=== PATIENT | female | born 1985 | race Caucasian/White ===

== ENCOUNTER 2017-04-25 07:15 | Inpatient (IN) | payer OTHER ==
[2017-04-25] MEDS: ELECTROLYTE-148 SOLN 1,000 ML IV SCH (09:30)
[2017-04-25 10:23] VITALS: BMI 35.5
[2017-04-25 10:29] LABS: BASOPHIL 1.1 % (0-2.0); EOSINOPHIL 1.9 % (0-4.5); MCH 25.8 pg (25.7-33.7); MCHC 32.3 g/dl (32.0-36.0); MEAN CELL VOLUME 79.9 fl (80-96); MEAN PLT VOLUME 8.4 fl (7.5-11.1); NEUTROPHILS 66.1 % (42.8-82.8); PLATELET COUNT 139 K/MM3 (134-434); RDW 16.8 % (11.6-15.6); WHITE BLOOD COUNT 6.7 K/mm3 (4.0-10.0)
[2017-04-25] MEDS ORDERED: AMPICILLIN - 2 GM in SODIUM CHLORIDE 100 ML IVPB ONE (10:31)
--- NOTE | 2017-04-25 10:35 | HP ---
Past Medical History - Admission Chief Complaint: labor pains History of Present Illness: 32 y/o at 39 weeks with complaints of labor pains and srom. GBS pos, hbsag neg, rpr neg, hiv neg History Source: Patient Limitations to Obtaining History: No Limitations - Past Medical History INCOME TAX ADVISOR: No: Alzheimer's, CVA, Dementia, Migraine, Multiple Sclerosis, Peripheral Neuropathy, Parkinson's, Seizure, Syncope, TIA, Vertigo, Other Cardiovascular: No: AFIB, Aneurysm, Aortic Insufficiency, Aortic Stenosis, CAD, CHF, Deep Vein Thrombosis, HTN, Hyperlipdemia, CT, Mitral Insufficiency, Mitral Stenosis, Murmur, Pulmonary Hypertension, Other Pulmonary: No: Asthma, Bronchitis, Cancer, COPD, O2 Dependent, Pneumonia, Previously Intubated, Pulmonary Embolus, Pulmonary Fibrosis, Sleep Apnea, Other Gastrointestinal: No: Ascites, Cancer, Constipation, Crohn's Disease, Diverticulitis, Diverticulosis, Esophageal Varices, Gastritis, GERD, GI Bleed, Hemorrhoids, Hiatal Hernia, Inflamatory Bowel Disease, Irritable Bowel Disease, Pancreatitis, Peptic Ulcer Disease, Ulcerative Colitis, Other Hepatobiliary: No: Cirrhosis, Cholelithiasis, Cholecystitis, Choledocholithiasis , Hepatitis A, Hepatitis B, Hepatitis C, Other Renal/: No: Renal Failure, Renal Inusuff, BPH, Cancer, Hematuria, Hemodialysis , Neurogenic Bladder, Renal Calculi, UTI, Other Reproductive: No: Ectopic , Endometriosis, Fibroids, PID, Polycystic Ovary Syndrome, Postmenopausal, Other ...: 3 ...Para: 2 ...Term: 2 ...: 0 ...Spon : 0 ...Induced : 0 ...Multiple Gestation: 0 ...LMP: 07/24/16 ...EDC by Dates: 04/30/17 ...EDC by Sono: 04/30/17 Heme/Onc: No: Anemia, B12 Deficiency, Bleeding Disorder, Cancer, Current Chemotherapy, Current Radiation Therapy, Hemochromatosis, Hypercoaguable State, Myeloproliferative Synd, Sickle Cell Disease, Sickle Cell Trait, Thrombocytopenia, Other Infectious Disease: No: AIDS, C-Diff, Herpes Zoster, HIV, MRSA, STD's, Tuberculosis, VREF, Other Psych: No: Addictions, Anxiety, Bipolar, Depression, Panic, Psychosis, Schizophrenia, Other Musculoskeletal: No: Bursitis, Chronic low back pain, Hemiparesis, Hemiplegia, Osteoarthritis, Paraplegia, Other Rheumatology: No: Fibromyalgia, Gout, Lupus, Rheumatoid Arthritis, Sarcoidosis, Vasculitis, Other ENT: No: Allergic Rhinitis, Sinusitis, Other Endocrine: No: [place] Disease, [place]'s Disease, Diabetes Insipidus, Diabetes Mellitus, Hyperparathyroidism, Hyperthyroidism, Hypothyroidism, Osteopenia, SIADH, Other Dermatology: No: Basal Cell, Cellulitis, Eczema, Melanoma, Psoriasis, Squamous Cell, Other - Past Surgical History Past Surgical History: No: None, AAA Repair, AICD, Amputation, Appendectomy, Arthrosocopy, AV Fistula/Graft, Bariatric Surgery, Breast Biopsy, Bypass, CABG, Carotid Endarterectomy, Cataract Removal, Cholecystectomy, Colectomy, Colonoscopy, Colostomy, Craniotomy, , Cystectomy, Hernia Repair, Hysterectomy, Ileal Conduit, Ileosotomy, Joint Replacement, Kidney Transplant, Laminectomy, Liver Transplant, Mastectomy, Nephrectomy, Oopherectomy, Orchiectomy, Permanent Pacemaker, Prostatectomy, Splenectomy, Stent, Thoracotomy , TURP, Tonsillectomy, Tubal Ligation, Upper Endoscopy, Valve Replacement, Vasectomy, Vein Stripping/Ligation Hx Myomectomy: No Hx Transabdominal Cerclage: No - Advance Directives Advance Directives: No: Living Will, Health Care Proxy, DNR, Organ Donor, Tissue Donor, MOLST - Smoking History Smoking history: Never smoked Have you smoked in the past 12 months: No - Alcohol/Substance Use Hx Alcohol Use: No Home Medications - Allergies Allergies/Adverse Reactions: Allergies Allergy/AdvReac Type Severity Reaction Status Date / Time No Known Allergies Allergy Verified 04/05/17 04:32 - Home Medications Home Medications: Ambulatory Orders Tablet 1 tab PO DAILY 04/05/17 Review of Systems - Review of Systems Constitutional: reports: No Symptoms Eyes: reports: No Symptoms HENT: reports: No Symptoms Neck: reports: No Symptoms Cardiovascular: reports: No Symptoms Respiratory: reports: No Symptoms Gastrointestinal: reports: No Symptoms Genitourinary: reports: No Symptoms Musculoskeletal: reports: No Symptoms Integumentary: reports: No Symptoms Neurological: reports: No Symptoms Endocrine: reports: No Symptoms Physical Exam - Maternity Vital Signs: Vital Signs Temperature 98.1 F 04/25/17 10:09 Pulse Rate 68 04/25/17 10:09 Respiratory Rate 20 07/29/17 10:09 Blood Pressure 128/86 04/25/17 10:09 O2 Sat by Pulse Oximetry (%) Constitutional: Yes: Well Nourished Eyes: Yes: WNL HENT: Yes: WNL Neck: Yes: WNL Cardiovascular: Yes: WNL Lungs: Clear to auscultation Breast(s): Yes: WNL - Abdominal Exam/OB Number of Fetuses: Single Presentation: Vertex Contractions: Yes Regularity: Regular Category: I Accelerations: Uniform Decelerations: None - Vaginal Exam/OB Vaginal Bleediing: No Dilatation (cm): 1 Amniotic Membrane Status: Ruptured Nitrazine Test: Positive Amniotic Fluid: Yes: Clear Assessment/Plan as above admit labs antibiotic pitocin
[2017-04-25] MEDS ORDERED: OXYTOCIN 15 UNITS/ LR 250 ML 250 ML IVPB SCH (10:45)
[2017-04-25 10:47] LABS: ANION GAP 9 (8-16); CALCIUM 8.9 mg/dL (8.5-10.1); CO2 22 mmol/L (21-32); CREATININE 0.5 mg/dL (0.55-1.02); GLUCOSE,RANDOM 79 mg/dL (74-106)
[2017-04-25 10:48] LABS: INR 0.89 (0.82-1.09); PROTHROMBIN TIME (PATIENT) 9.8 SEC (9.98-11.88)
[2017-04-25 10:51] LABS: ACTIVATED PTT 27.3 SECONDS (26.9-34.4)
--- NOTE | 2017-04-25 11:51 | PN ---
Ante-Partal Exam - Subjective Vital Signs: Vital Signs Temperature 98.1 F 04/25/17 10:09 Pulse Rate 68 04/25/17 11:00 Respiratory Rate 20 04/25/17 11:00 Blood Pressure 128/76 04/25/17 11:00 O2 Sat by Pulse Oximetry (%) Bleeding: No Headache: No Visual changes: No Right upper quadrant pain: No - Contractions Contractions: Yes Regularity: Regular Intensity: Mild Monitor Mode: External - Exam during Labor Heart Rate: 150 Category: I Monitor Accelerations: Present Monitor Decelerations: None Exam: Vaginal Dilatation (cm): 2 Effacement (%): 50 Amniotic Membrane Status: Intact Nitrazine Test: Positive Station: -1 - Assessment/Plan Assessment/Plan: continue pitocin
[2017-04-25] MEDS: AMPICILLIN - 1 GM in SODIUM CHLORIDE 100 ML IVPB SCH ×3 (14:21→22:33)
[2017-04-25] MEDS ORDERED: PROMETHAZINE HCL 25 MG/1 ML VIAL IVPB PRN (15:59)
[2017-04-25] MEDS ORDERED: BUTORPHANOL TARTRATE 1 MG/ML VIAL IVPUSH PRN (16:00)
[2017-04-25] MEDS ORDERED: IBUPROFEN 600 MG TABLET (FP) PO PRN (18:43)
[2017-04-25] MEDS ORDERED: BENZOCAINE 20% 57 GM BOTTLE TP PRN (18:43)
[2017-04-25] MEDS ORDERED: ACETAMINOPHEN 325 MG TABLET (FP) PO PRN (18:43)
[2017-04-25] MEDS ORDERED: METHYLERGONOVINE MALEATE 0.2 MG/1 ML AMP IM PRN (18:43)
[2017-04-25] MEDS ORDERED: BISACODYL 10 MG SUPP.RECT RC PRN (18:43)
[2017-04-25] MEDS ORDERED: WITCH HAZEL 50% (TUCKS) 40 PAD/JAR PAD TP PRN (18:43)
[2017-04-25] MEDS ORDERED: BENZOCAINE 28 GM HEMORRHOIDAL OINTMENT TP PRN (18:43)
--- NOTE | 2017-04-25 18:46 | PN ---
Delivery - Delivery Episiotomy/Laceration: 1st degree EBL (cc): 300 Delivery, Single - [place] Feeding Plan Initial Plan: Elected not to breastfeed exclusively throughout hospitalization
[2017-04-25] MEDS: OXYTOCIN 20 UNITS in 0.9% NS 1,000 ML IV SCH (18:53)
--- NOTE | 2017-04-26 01:04 | PN ---
Post Progress Note Post Day: 1 Type of Delivery: Vital Signs: Vital Signs Temperature 99.4 F 04/25/17 22:00 Pulse Rate 77 04/25/17 22:00 Respiratory Rate 18 04/25/17 22:00 Blood Pressure 131/78 04/25/17 22:00 O2 Sat by Pulse Oximetry (%) 100 04/25/17 20:45 Breast Exam: Yes: Soft Uterus: Yes: Fundus Firm Abdomen/GI: Yes: Abdomen soft Lochia: Yes: Rubra Lochia, amount: Small Extremities: Yes: Calves non-tender Perineum: Yes: Intact Activity: Ambulating - Labs Labs: CBC WBC 6.7 K/mm3 (4.0-10.0) 04/25/17 10:15 RBC 4.51 M/mm3 (3.60-5.2) 04/25/17 10:15 Hgb 11.6 GM/dL (10.7-15.3) 04/25/17 10:15 Hct 36.0 % (32.4-45.2) 04/25/17 10:15 MCV 79.9 fl (80-96) L 04/25/17 10:15 MCH 25.8 pg (25.7-33.7) 04/25/17 10:15 MCHC 32.3 g/dl (32.0-36.0) 04/25/17 10:15 RDW 16.8 % (11.6-15.6) H 04/25/17 10:15 Plt Count 139 K/MM3 (134-434) 04/25/17 10:15 MPV 8.4 fl (7.5-11.1) 04/25/17 10:15 Neutrophils % 66.1 % (42.8-82.8) 04/25/17 10:15 Lymphocytes % 24.4 % (8-40) 04/25/17 10:15 Monocytes % 6.5 % (3.8-10.2) 04/25/17 10:15 Eosinophils % 1.9 % (0-4.5) 04/25/17 10:15 Basophils % 1.1 % (0-2.0) 04/25/17 10:15 Assessment/Plan as above oob reg diet
[2017-04-26] MEDS: OXYTOCIN 20 UNITS in 0.9% NS 1,000 ML IV SCH (01:54)
[2017-04-26 08:52] LABS: BASOPHIL 0.6 % (0-2.0); EOSINOPHIL 0.8 % (0-4.5); MCH 25.9 pg (25.7-33.7); MCHC 32.2 g/dl (32.0-36.0); MEAN CELL VOLUME 80.5 fl (80-96); MEAN PLT VOLUME 8.8 fl (7.5-11.1); NEUTROPHILS 65.2 % (42.8-82.8); PLATELET COUNT 136 K/MM3 (134-434); RDW 16.7 % (11.6-15.6); WHITE BLOOD COUNT 6.6 K/mm3 (4.0-10.0)
[2017-04-26] MEDS ORDERED: SENNOSIDES/DOCUSATE COMBO (SENNA PLUS) TABLET (UD) PO PRN (22:00)
--- NOTE | 2017-04-27 07:01 | PN ---
Post Progress Note Type of Delivery: Vital Signs: Vital Signs Temperature 98.7 F 04/26/17 21:35 Pulse Rate 75 04/26/17 21:35 Respiratory Rate 18 04/26/17 21:35 Blood Pressure 125/83 04/26/17 21:35 O2 Sat by Pulse Oximetry (%) 100 04/25/17 20:45 Breast Exam: Yes: Soft Uterus: Yes: Fundus Firm Incision: Yes: Dressing dry and intact Abdomen/GI: Yes: Abdomen soft Lochia: Yes: Rubra Lochia, amount: Small Extremities: Yes: Calves non-tender Perineum: Yes: Intact Activity: Ambulating - Labs Labs: CBC WBC 6.6 K/mm3 (4.0-10.0) 04/26/17 08:00 RBC 4.33 M/mm3 (3.60-5.2) 04/26/17 08:00 Hgb 11.2 GM/dL (10.7-15.3) 04/26/17 08:00 Hct 34.8 % (32.4-45.2) 04/26/17 08:00 MCV 80.5 fl (80-96) 04/26/17 08:00 MCH 25.9 pg (25.7-33.7) 04/26/17 08:00 MCHC 32.2 g/dl (32.0-36.0) 04/26/17 08:00 RDW 16.7 % (11.6-15.6) H 04/26/17 08:00 Plt Count 136 K/MM3 (134-434) 04/26/17 08:00 MPV 8.8 fl (7.5-11.1) 04/26/17 08:00 Neutrophils % 65.2 % (42.8-82.8) 04/26/17 08:00 Lymphocytes % 27.1 % (8-40) 04/26/17 08:00 Monocytes % 6.3 % (3.8-10.2) 04/26/17 08:00 Eosinophils % 0.8 % (0-4.5) 04/26/17 08:00 Basophils % 0.6 % (0-2.0) 04/26/17 08:00 Assessment/Plan as above doing well oob d c home
[2017-04-27 09:48] VITALS: BP 133/76; PULSE 64; TEMP 98
[2017-04-27] MEDS: ELECTROLYTE-148 SOLN 1,000 ML IV SCH (11:25)
== END 2017-04-27 11:12 | disposition home or self-care (01) | DRG 560 ==
LOC: JDEL 07:15 → JLDR 09:45 → J3W 21:00
PROVIDERS: ADMIT Obstetrics & Gynecology; ATTEND Obstetrics & Gynecology
PROC: 10E0XZZ Delivery of Products of Conception, External Approach (ICD-10-PCS; principal; 2017-04-25)
PROC: 0HQ9XZZ Repair Perineum Skin, External Approach (ICD-10-PCS; 2017-04-25)
PROC: 0W8NXZZ Division of Female Perineum, External Approach (ICD-10-PCS; 2017-04-25)
DX: O70.0 First degree perineal laceration during delivery (principal); Z3A.39 39 weeks gestation of pregnancy; Z22.330 Carrier of Group B streptococcus; Z37.0 Single live birth
CPT/HCPCS: 36415; 59409; 80048; 85025; 85610; 85730; 86593; 86850; 86900; 86901

== ENCOUNTER 2022-09-27 13:39 | Emergency (ER) | payer OTHER ==
[2022-09-27 13:55] VITALS: BP 138/63; PULSE 73; RESP 20; TEMP 98.9; BMI 33.5
[2022-09-27] MEDS ORDERED: ACETAMINOPHEN 500 MG TABLET (FP) PO ONE (14:25)
[2022-09-27] MEDS ORDERED: ACETAMINOPHEN 325 MG TABLET (FP) ONE (14:37)
[2022-09-27 15:16] LABS: EOS % 5.2 % (0-4.5); HEMATOCRIT 35.9 % (32.4-45.2); HEMOGLOBIN 11.2 GM/dL (10.7-15.3); LYMPH % 31.5 % (8-40); MCH 25.8 pg (25.7-33.7); MCHC 31.1 g/dl (32.0-36.0); MEAN CELL VOLUME 82.8 fl (80-96); MEAN PLT VOLUME 7.9 fl (7.5-11.1); MONO % 5.8 % (3.8-10.2); NEUT % 56.5 % (42.8-82.8); PLATELET COUNT 243 10^3/uL (134-434); RBC 4.34 M/mm3 (3.60-5.2); RDW 15.8 % (11.6-15.6); WHITE BLOOD COUNT 4.9 K/mm3 (4.0-10.0)
[2022-09-27 15:21] LABS: INR 1.01 (0.83-1.09); PROTHROMBIN TIME (PATIENT) 11.6 SEC (9.7-13.0)
[2022-09-27 15:23] LABS: ACTIVATED PTT 30.5 SECONDS (25.2-36.5)
[2022-09-27 15:40] LABS: CALCIUM 9.3 mg/dL (8.5-10.1)
[2022-09-27 15:41] LABS: ALBUMIN 3.7 g/dl (3.4-5.0)
[2022-09-27 15:44] LABS: CREATININE 0.5 mg/dL (0.55-1.3)
[2022-09-27 15:46] LABS: BILIRUBIN,TOTAL 0.3 mg/dL (0.2-1); TOT PROT 7.5 g/dl (6.4-8.2)
[2022-09-27 16:27] LABS: PH,URINE 5.5 (5.0-8.0); URINE APPEARANCE CLEAR; URINE BILIRUBIN NEGATIVE (NEGATIVE); URINE COLOR YELLOW; URINE GLUCOSE (UA) NEGATIVE (NEGATIVE); URINE KETONE NEGATIVE (NEGATIVE); URINE LEUK ESTERASE NEGATIVE (NEGATIVE); URINE NITRITE NEGATIVE (NEGATIVE); URINE PROTEIN NEGATIVE (NEGATIVE); URINE UROBILINOGEN 0.2 mg/dL (0.2-1.0)
[2022-09-27 16:29] LABS: HCG,QUALITATIVE URINE Negative
[2022-09-27] MEDS ORDERED: predniSONE 20 MG TABLET (UD) PO ONE (16:42)
[2022-09-27] MEDS ORDERED: predniSONE 20 MG TABLET (UD) ONE (16:56)
== END 2022-09-27 17:08 | disposition home or self-care (01) ==
LOC: JER 13:39
DX: G51.0 Bell's palsy (principal)
CPT/HCPCS: 0241U-QW; 36415; 70450-TC; 80053; 81003; 84703; 85025; 85610; 85730; 86618; 87086; 99284-25